=== PATIENT | male | born 1995 | race Caucasian/White ===

== ENCOUNTER 2017-07-29 15:42 | Emergency (ER) | payer MEDICAID ==
[~2017-07-29] VITALS: Ht 172.7 cm; Wt 61.1 kg
[2017-07-29] MEDS ORDERED: SODIUM CHLORIDE FLUSH 10ML SYR IVF ONE (16:30)
[2017-07-29] MEDS ORDERED: ONDANSETRON 2MG/ML, 2ML IVPush ONE (16:30)
[2017-07-29] MEDS ORDERED: SODIUM CHLORIDE 0.9% 1,000ML IVBOLUS ONE (16:30)
[2017-07-29 16:40] LABS: HEMATOCRIT 53.9 % (39.2-51.8); HEMOGLOBIN 18.5 g/dL (13.7-18.0)
[2017-07-29 16:50] LABS: ASPARTATE AMINO TRANSFERASE 8 U/L (15-37); BLOOD UREA NITROGEN 11 mg/dL (7-18)
[2017-07-29] MEDS ORDERED: morphine SULFATE 10 MG/ML, 1ML ONE (16:55)
[2017-07-29] MEDS ORDERED: ONDANSETRON 2MG/ML, 2ML ONE (16:55)
[2017-07-29] MEDS: MORPHINE SULFATE 4 MG/ML, 1ML IVPush PRN ×2 (17:00→17:35)
[2017-07-29 18:02] VITALS: BP 104/56
== END 2017-07-29 18:05 | disposition home or self-care (01) ==
LOC: ED 17:30
DX: R10.84 Generalized abdominal pain (principal); R11.2 Nausea with vomiting, unspecified
CPT/HCPCS: 36415; 80053; 83605; 83690; 85025; 96361; 96374; 96375; 96376; 99284; J2405; J7030

== ENCOUNTER 2017-08-01 02:27 | Emergency (ER) | payer MEDICAID ==
[~2017-08-01] VITALS: Ht 172.7 cm; Wt 61.5 kg
[2017-08-01 03:19] LABS: HEMATOCRIT 45.1 % (39.2-51.8); HEMOGLOBIN 15.6 g/dL (13.7-18.0); WHITE BLOOD COUNT 10.4 x10^3/uL (3.4-10)
[2017-08-01] MEDS ORDERED: OMNIPAQUE 350 MG/ML, 100ML BOTTLE ONE (03:19)
[2017-08-01] MEDS ORDERED: morphine SULFATE 10 MG/ML, 1ML ONE (03:20)
[2017-08-01] MEDS ORDERED: ONDANSETRON 2MG/ML, 2ML ONE (03:20)
[2017-08-01 03:29] LABS: ASPARTATE AMINO TRANSFERASE 13 U/L (15-37); BLOOD UREA NITROGEN 10 mg/dL (7-18)
[2017-08-01] MEDS ORDERED: morphine SULFATE 10 MG/ML, 1ML IVPush PRN (03:30)
[2017-08-01] MEDS ORDERED: SODIUM CHLORIDE 0.9% 1,000ML IVBOLUS ONE (03:30)
[2017-08-01] MEDS ORDERED: ONDANSETRON 2MG/ML, 2ML IVPush ONE (03:30)
[2017-08-01] MEDS ORDERED: DICYCLOMINE 10 MG/ML, 2ML IM ONE (04:00)
[2017-08-01 05:56] VITALS: BP 145/68
[2017-08-01] MEDS ORDERED: KETOROLAC 60 MG/2 ML IVPush ONE (06:00)
== END 2017-08-01 06:28 | disposition home or self-care (01) ==
LOC: ED 02:45
DX: K52.9 Noninfective gastroenteritis and colitis, unspecified (principal)
CPT/HCPCS: 36415; 74177; 80053; 81001; 83690; 85025; 87086; 96372; 96374; 96375; 99285; J0500; J2270; J2405; J7030; Q9967